=== PATIENT | male | born 1995 | race Two or more races ===

== ENCOUNTER 2016-12-12 08:37 | Emergency (ER) | payer MEDICAID ==
[2016-12-12 08:52] VITALS: BP 133/89
[2016-12-12] MEDS: Acetaminophen/HYDROcodone 325-10 MG Tab PO ONE ×2 (09:12→10:02)
[2016-12-12] MEDS ORDERED: Acetaminophen/HYDROcodone 325-10 MG Tab ONE ×2 (09:15→10:01)
--- NOTE | 2016-12-12 09:30 | EDM.PDOC ---
ED HPI GENERAL MEDICAL PROBLEM - General Chief Complaint: Abdominal Pain Stated Complaint: abdominal pain Time Seen by Provider: 12/12/16 09:10 Source of Information: Reports: Patient History Limitations: Reports: No Limitations - History of Present Illness INITIAL COMMENTS - FREE TEXT/NARRATIVE: This is a 21yo M working at [employer] who went home early from work yesterday for nausea and vomiting and has continued with episodic vomiting today but now has increasing RUQ pain on movement and touch since 5am this morning. He did eat this am and has been regularly taking his medications. He had 3 bouts of abdominal pain yesterday but were short lived. He has had abdominal pain and concerns for over 6-7 years but has never been diagnosed with a disorder. There was some discussion of Crohns with a provider in [place] but nothing definitive. His pain started at about 6/10 and in the ER is at 8/10. Onset: Sudden Duration: Hour(s):, Getting Worse Location: Reports: Abdomen Quality: Reports: Ache, Stabbing Severity: Moderate Improves with: Reports: None Worsens with: Reports: Movement Associated Symptoms: Reports: Nausea/Vomiting - Related Data Allergies Allergy/AdvReac Type Severity Reaction Status Date / Time No Known Allergies Allergy Verified 12/12/16 08:47 Home Meds: Home Meds Dexmethylphenidate HCl [Focalin XR] 15 mg PO DAILY 12/12/16 [History] Escitalopram [Lexapro] 10 mg PO DAILY 12/12/16 [History] Past Medical History Gastrointestinal History: Reports: GERD Social & Family History - Family History Family Medical History: Noncontributory - Caffeine Use Caffeine Use: Reports: None - Recreational Drug Use Recreational Drug Use: No ED ROS GENERAL - Review of Systems Review Of Systems: ROS reveals no pertinent complaints other than HPI. ED EXAM, GI/ABD - Physical Exam Exam: See Below Exam Limited By: No Limitations General Appearance: Alert, WD/WN, Moderate Distress Eyes: Bilateral: EOMI Ears: Normal External Exam Nose: Normal Inspection Throat/Mouth: Normal Inspection Head: Atraumatic, Normocephalic Neck: Normal Inspection Respiratory/Chest: No Respiratory Distress Cardiovascular: Normal Peripheral Pulses GI/Abdominal Exam: Guarding, Tender, Abnormal Bowel Sounds (hyperactive) Extremities: Normal Inspection Neurological: Alert, Oriented, CN II-XII Intact Psychiatric: Normal Affect, Normal Mood Skin Exam: Warm, Dry, Intact Course - Vital Signs Last Recorded V/S: Last Vital Signs Temp 37.3 C 12/12/16 08:50 Pulse 87 12/12/16 08:50 Resp 14 12/12/16 08:50 BP 133/89 12/12/16 08:50 Pulse Ox 99 12/12/16 08:50 - Orders/Labs/Meds Orders: Active Orders 24 hr Category Date Time Status Abdomen Pelvis wo Cont [CT] Stat Exams 12/12/16 09:12 Taken Miscellaneous Lab [REFERENCE TEST TO [facility]] [REF] Lab 12/12/16 09:11 Ordered Routine Sodium Chloride 0.9% [Saline Flush] Med 12/12/16 12:41 Ordered 10 ml FLUSH ASDIRECTED PRN Peripheral IV Insertion Adult [OM.PC] Routine Oth 12/12/16 12:41 Ordered Medication Orders Sodium Chloride (Saline Flush) 10 ml FLUSH ASDIRECTED PRN PRN Reason: Keep Vein Open Labs: Laboratory Tests 12/12/16 12/12/16 12/12/16 Range/Units 09:15 09:15 09:15 WBC 7.0 (4.0-11.0) K/uL RBC 4.96 (4.50-6.50) M/uL Hgb 14.6 (13.0-18.0) g/dL Hct 42.3 (40.0-54.0) % MCV 85 (76-96) fL MCH 29.4 (27.0-32.0) pg MCHC 34.5 (31.0-35.0) g/dL RDW 13.4 (11.0-16.0) % Plt Count 223 (150-400) K/uL MPV 10.3 H (6.0-10.0) fL Neut % (Auto) 58.2 (45.0-70.0) % Lymph % (Auto) 30.3 (20.0-40.0) % [place] % (Auto) 9.6 (3.0-10.0) % Eos % (Auto) 1.3 (1.0-5.0) % Baso % (Auto) 0.6 H (0.0-0.5) % Neut # (Auto) 4.08 (2.00-7.50) K/uL Lymph # (Auto) 2.12 (1.50-4.00) K/uL [place] # (Auto) 0.67 (0.20-0.80) K/uL Eos # (Auto) 0.09 (0.04-0.40) K/uL Baso # (Auto) 0.04 (0.02-0.10) K/uL Sodium 138 (136-145) mmol/L Potassium 3.5 (3.5-5.1) mmol/L Chloride 102 (98-107) mmol/L Carbon Dioxide 28.7 (21.0-32.0) mmol/L Anion Gap 10.8 (5.0-15.0) mmol/L BUN 15 (8-26) mg/dL Creatinine 1.04 (0.70-1.30) mg/dL Est Cr Clr Drug Dosing 111.41 mL/min Estimated GFR (MDRD) > 60 (>60) MLS/MIN BUN/Creatinine Ratio 14.4 (6-25) Glucose 99 (74-100) mg/dL Calcium 9.1 (8.5-10.1) mg/dL Total Bilirubin 0.3 (0.0-1.0) mg/dL Direct Bilirubin (0.0-0.3) mg/dL AST 18 (15-37) U/L ALT 28 (12-78) U/L Alkaline Phosphatase 79 (46-116) U/L Total Protein 7.9 (6.4-8.2) g/dL Albumin 3.9 (3.4-5.0) g/dL Globulin 4.0 (2.2-4.2) g/dL Albumin/Globulin Ratio 1.0 (0.8-2.0) Lipase 167 (73-393) U/L TSH, Ultra Sensitive 2.112 (0.358-3.740) uIU/mL Urine Color Urine Appearance (CLEAR) Urine pH (5.0-8.0) Ur Specific [place] (1.003-1.030) Urine Protein (NEGATIVE) mg/dL Urine Glucose (UA) (NEGATIVE) mg/dL Urine Ketones (NEGATIVE) mg/dL Urine Occult Blood (NEGATIVE) Urine Nitrite (NEGATIVE) Urine Bilirubin (NEGATIVE) Urine Urobilinogen (0.2-1.0) E.U./dL Ur Leukocyte Esterase (NEGATIVE) Urine RBC /HPF Urine WBC /HPF Ur Squamous Epith Cells /HPF Urine Bacteria /HPF 12/12/16 12/12/16 Range/Units 09:15 10:00 WBC (4.0-11.0) K/uL RBC (4.50-6.50) M/uL Hgb (13.0-18.0) g/dL Hct (40.0-54.0) % MCV (76-96) fL MCH (27.0-32.0) pg MCHC (31.0-35.0) g/dL RDW (11.0-16.0) % Plt Count (150-400) K/uL MPV (6.0-10.0) fL Neut % (Auto) (45.0-70.0) % Lymph % (Auto) (20.0-40.0) % [place] % (Auto) (3.0-10.0) % Eos % (Auto) (1.0-5.0) % Baso % (Auto) (0.0-0.5) % Neut # (Auto) (2.00-7.50) K/uL Lymph # (Auto) (1.50-4.00) K/uL [place] # (Auto) (0.20-0.80) K/uL Eos # (Auto) (0.04-0.40) K/uL Baso # (Auto) (0.02-0.10) K/uL Sodium (136-145) mmol/L Potassium (3.5-5.1) mmol/L Chloride (98-107) mmol/L Carbon Dioxide (21.0-32.0) mmol/L Anion Gap (5.0-15.0) mmol/L BUN (8-26) mg/dL Creatinine (0.70-1.30) mg/dL Est Cr Clr Drug Dosing mL/min Estimated GFR (MDRD) (>60) MLS/MIN BUN/Creatinine Ratio (6-25) Glucose (74-100) mg/dL Calcium (8.5-10.1) mg/dL Total Bilirubin (0.0-1.0) mg/dL Direct Bilirubin 0.1 (0.0-0.3) mg/dL AST (15-37) U/L ALT (12-78) U/L Alkaline Phosphatase (46-116) U/L Total Protein (6.4-8.2) g/dL Albumin (3.4-5.0) g/dL Globulin (2.2-4.2) g/dL Albumin/Globulin Ratio (0.8-2.0) Lipase (73-393) U/L TSH, Ultra Sensitive (0.358-3.740) uIU/mL Urine Color Yellow Urine Appearance Clear (CLEAR) Urine pH 8.5 H (5.0-8.0) Ur Specific [place] 1.015 (1.003-1.030) Urine Protein 30 H (NEGATIVE) mg/dL Urine Glucose (UA) Negative (NEGATIVE) mg/dL Urine Ketones Negative (NEGATIVE) mg/dL Urine Occult Blood Negative (NEGATIVE) Urine Nitrite Negative (NEGATIVE) Urine Bilirubin Negative (NEGATIVE) Urine Urobilinogen 0.2 (0.2-1.0) E.U./dL Ur Leukocyte Esterase Negative (NEGATIVE) Urine RBC Not seen /HPF Urine WBC 0-5 H /HPF Ur Squamous Epith Cells Few /HPF Urine Bacteria Few /HPF Meds: Medications Generic Name Dose Route Start Last Admin Trade Name Freq PRN Reason Stop Dose Admin Sodium Chloride 10 ml 12/12/16 12:41 Saline Flush FLUSH ASDIRECTED PRN Keep Vein Open Discontinued Medications Generic Name Dose Route Start Last Admin Trade Name Freq PRN Reason Stop Dose Admin Hydrocodone Bitart/Acetaminophen 1 tab 12/12/16 09:09 12/12/16 10:02 [place] 325-10 Mg PO 12/12/16 09:10 1 tab ONETIME ONE Administration Hydrocodone Bitart/Acetaminophen Confirm 12/12/16 09:15 [place] 325-10 Mg Administered 12/12/16 09:16 Dose 1 tab .ROUTE .STK-MED ONE Hydrocodone Bitart/Acetaminophen Confirm 12/12/16 10:01 [place] 325-10 Mg Administered 12/12/16 10:02 Dose 1 tab .ROUTE .STK-MED ONE Morphine Sulfate 2 mg 12/12/16 12:41 12/12/16 12:33 Morphine IVPUSH 12/12/16 12:42 2 mg ONETIME ONE Administration Morphine Sulfate 2 mg 12/12/16 12:41 12/12/16 12:44 Morphine IVPUSH 12/12/16 12:42 2 mg ONETIME ONE Administration Morphine Sulfate Confirm 12/12/16 12:49 Morphine Administered 12/12/16 12:50 Dose 2 mg .ROUTE .STK-MED ONE Departure - Departure Time of Disposition: 13:00 Disposition: DC/Tfer to Acute Hospital 02 Condition: Undetermined Clinical Impression: Intussusception of small intestine, Acute abdominal pain in right upper quadrant Vomiting Qualifiers: Vomiting type: unspecified Vomiting Intractability: unspecified Nausea presence : with nausea Qualified Code(s): R11.2 - Nausea with vomiting, unspecified - Discharge Information Referrals: PCP,None [Ordering Only Provider] - Forms: ED Department Discharge, ED Return to Work/School Form - Problem List & Annotations (1) Acute abdominal pain in right upper quadrant SNOMED Code(s): 049133160 Code(s): R10.11 - RIGHT UPPER QUADRANT PAIN Status: Acute Priority: High Current Visit: Yes (2) Intussusception of small intestine SNOMED Code(s): 780724812 Code(s): K56.1 - INTUSSUSCEPTION Status: Acute Priority: High Current Visit: Yes (3) Vomiting SNOMED Code(s): 479534636 Code(s): R11.10 - VOMITING, UNSPECIFIED Status: Acute Priority: Medium Current Visit: Yes Qualifiers: Vomiting type: unspecified Vomiting Intractability: unspecified Nausea presence: with nausea Qualified Code(s): R11.2 - Nausea with vomiting, unspecified - Problem List Review Problem List Initiated/Reviewed/Updated: Yes - My Orders Last 24 Hours: My Active Orders 12/12/16 09:11 Miscellaneous Lab [REFERENCE TEST TO MISC LAB] [REF] Routine 12/12/16 09:12 Abdomen Pelvis wo Cont [CT] Stat 12/12/16 12:41 Sodium Chloride 0.9% [Saline Flush] 10 ml FLUSH ASDIRECTED PRN Peripheral IV Insertion Adult [OM.PC] Routine - Assessment/Plan Last 24 Hours: My Active Orders 12/12/16 09:11 Miscellaneous Lab [REFERENCE TEST TO MISC LAB] [REF] Routine 12/12/16 09:12 Abdomen Pelvis wo Cont [CT] Stat 12/12/16 12:41 Sodium Chloride 0.9% [Saline Flush] 10 ml FLUSH ASDIRECTED PRN Peripheral IV Insertion Adult [OM.PC] Routine Plan: Consulted Dr. Tse and discussed intussusception. Plan of transfer discussed with hospitalist Dr. Aguilar. Patient to be transferred for further management as discussed. Patient agrees with plan. Patient would rather go to [place] as his mother lives there but counseled on closer care and travel and patient agrees with plan of action. Patient counseled on Radiological findings and addendum of findings.
[2016-12-12] MEDS ORDERED: Sodium Chloride 0.9% 10 ML Syringe FLUSH PRN (12:41)
[2016-12-12] MEDS ORDERED: Morphine 2 MG/ML Syringe IVPUSH ONE ×2 (12:41)
[2016-12-12] MEDS ORDERED: Morphine 2 MG/ML Syringe ONE (12:49)
--- NOTE | 2016-12-13 08:49 | CT ---
DATE OF SERVICE: 12/12/2016 CLINICAL DATA: RUQ pain. UNENHANCED ABDOMEN AND PELVIC CT Multislice acquisition through the abdomen and pelvis without IV, but with oral contrast was performed. No priors. The lung bases are clear. The unenhanced liver appears normal. The gallbladder appears normal. The spleen appears normal. The pancreas appears normal. The right and left adrenals appear normal. The right and left kidneys appear normal. No nephrocalcinosis or nephrolithiasis. No hydronephrosis or hydroureter. The bladder is partially fluid filled. It appears normal. The appendix is not dilated. No evidence of appendicitis. There is a segment of small bowel within the left abdomen demonstrating small bowel intussusception. No evidence of obstruction associated with this. There is another loop of small bowel with apparent mural thickening. Infectious or inflammatory process should be considered. No free air. No free fluid. No dilated loops of bowel. No aortic aneurysm. There are few scattered mesenteric nodes on the right. Mesenteric adenitis should be considered. IMPRESSION: Small bowel intussusception. Apparent mural thickening within a loop of small bowel. Followup CT should be considered. Scattered mesenteric nodes on right. Mesenteric adenitis should be considered. [id number] MTDD
== END 2016-12-12 12:50 ==
LOC: LB.ED 08:37
DX: K56.1 Intussusception (principal); K21.9 Gastro-esophageal reflux disease without esophagitis; Z79.899 Other long term (current) drug therapy
CPT/HCPCS: 36415; 74176; 80053; 81001; 82248; 83690; 84443; 85025; 96374; 99285; A0425; A0429; A9270; J2270

== ENCOUNTER 2016-12-31 09:18 | Emergency (ER) | payer MEDICAID ==
[2016-12-31] MEDS ORDERED: Acetaminophen/HYDROcodone 325-10 MG Tab PO ONE (10:27)
[2016-12-31] MEDS ORDERED: Acetaminophen/HYDROcodone 325-10 MG Tab ONE (10:29)
[2016-12-31 10:54] VITALS: BP 108/70
--- NOTE | 2016-12-31 16:06 | EDM.PDOC ---
ED HPI GENERAL MEDICAL PROBLEM - General Chief Complaint: Abdominal Pain Stated Complaint: ABD PAIN Time Seen by Provider: 12/31/16 09:30 Source of Information: Reports: Patient History Limitations: Reports: No Limitations - History of Present Illness INITIAL COMMENTS - FREE TEXT/NARRATIVE: This is a 21yo M who was found to have multiple intussusceptions of the small bowel and transferred to [place] returned today with increasing abdominal pain. He has been on hydrocodone since his discharge from [place]. Patient states James has ordered a EGD and Colonoscopy for this saturday but did not have any surgical options at this time. Onset: Sudden Duration: Hour(s): Location: Reports: Abdomen Quality: Reports: Ache Severity: Moderate Improves with: Reports: None Worsens with: Reports: None Right Upper Abdomen Pain Score (Numeric/FACES): 6 - Related Data Allergies Allergy/AdvReac Type Severity Reaction Status Date / Time No Known Allergies Allergy Verified 12/12/16 08:47 Home Meds: Home Meds Dexmethylphenidate HCl [Focalin XR] 15 mg PO DAILY 12/12/16 [History] Escitalopram [Lexapro] 10 mg PO DAILY 12/12/16 [History] Past Medical History Gastrointestinal History: Reports: Chronic Constipation, Chronic Diarrhea, GERD Psychiatric History: Reports: ADHD Social & Family History - Family History Family Medical History: Noncontributory GI: Reports: Cholelithiasis - Caffeine Use Caffeine Use: Reports: None - Recreational Drug Use Recreational Drug Use: No ED ROS GENERAL - Review of Systems Review Of Systems: ROS reveals no pertinent complaints other than HPI. ED EXAM, GI/ABD - Physical Exam Exam: See Below Exam Limited By: No Limitations General Appearance: Alert, WD/WN, Moderate Distress Eyes: Bilateral: EOMI Ears: Normal External Exam Nose: Normal Inspection Throat/Mouth: Normal Inspection Head: Atraumatic, Normocephalic Neck: Normal Inspection Respiratory/Chest: No Respiratory Distress, Lungs Clear, Normal Breath Sounds Cardiovascular: Normal Peripheral Pulses, Regular Rate, Rhythm GI/Abdominal Exam: Tender Back Exam: Normal Inspection Extremities: Normal Inspection Neurological: Alert, Oriented, CN II-XII Intact Psychiatric: Normal Affect, Normal Mood Skin Exam: Warm, Dry, Intact Course - Vital Signs Last Recorded V/S: Last Vital Signs Temp 36.4 C 12/31/16 09:27 Pulse 75 12/31/16 10:53 Resp 16 12/31/16 10:53 BP 108/70 12/31/16 10:53 Pulse Ox 98 12/31/16 10:53 - Orders/Labs/Meds Orders: Active Orders 24 hr Category Date Time Status Abdomen wo Cont [CT] Stat Exams 12/31/16 10:26 Taken Labs: Laboratory Tests 12/31/16 12/31/16 Range/Units 09:55 09:55 WBC 6.2 (4.0-11.0) K/uL RBC 4.65 (4.50-6.50) M/uL Hgb 13.9 (13.0-18.0) g/dL Hct 40.7 (40.0-54.0) % MCV 88 (76-96) fL MCH 29.9 (27.0-32.0) pg MCHC 34.2 (31.0-35.0) g/dL RDW 13.6 (11.0-16.0) % Plt Count 173 D (150-400) K/uL MPV 10.0 (6.0-10.0) fL Neut % (Auto) 55.9 (45.0-70.0) % Lymph % (Auto) 30.5 (20.0-40.0) % [place] % (Auto) 10.9 H (3.0-10.0) % Eos % (Auto) 2.4 (1.0-5.0) % Baso % (Auto) 0.3 (0.0-0.5) % Neut # (Auto) 3.44 (2.00-7.50) K/uL Lymph # (Auto) 1.88 (1.50-4.00) K/uL [place] # (Auto) 0.67 (0.20-0.80) K/uL Eos # (Auto) 0.15 (0.04-0.40) K/uL Baso # (Auto) 0.02 (0.02-0.10) K/uL Sodium 141 (136-145) mmol/L Potassium 3.6 (3.5-5.1) mmol/L Chloride 106 (98-107) mmol/L Carbon Dioxide 23.9 (21.0-32.0) mmol/L Anion Gap 14.7 (5.0-15.0) mmol/L BUN 11 D (8-26) mg/dL Creatinine 1.21 (0.70-1.30) mg/dL Est Cr Clr Drug Dosing 95.76 mL/min Estimated GFR (MDRD) > 60 (>60) MLS/MIN BUN/Creatinine Ratio 9.1 (6-25) Glucose 94 (74-100) mg/dL Calcium 9.1 (8.5-10.1) mg/dL Total Bilirubin 0.3 (0.0-1.0) mg/dL AST 21 (15-37) U/L ALT 27 (12-78) U/L Alkaline Phosphatase 78 (46-116) U/L Total Protein 7.5 (6.4-8.2) g/dL Albumin 3.7 (3.4-5.0) g/dL Globulin 3.8 (2.2-4.2) g/dL Albumin/Globulin Ratio 1.0 (0.8-2.0) Meds: Medications Discontinued Medications Generic Name Dose Route Start Last Admin Trade Name [place] PRN Reason Stop Dose Admin Hydrocodone Bitart/Acetaminophen 1 tab 12/31/16 10:27 12/31/16 10:29 [place] 325-10 Mg PO 12/31/16 10:28 1 tab ONETIME ONE Administration Hydrocodone Bitart/Acetaminophen Confirm 12/31/16 10:29 [place] 325-10 Mg Administered 12/31/16 10:30 Dose 1 tab .ROUTE .STK-MED ONE Departure - Departure Time of Disposition: 13:00 Disposition: Home, Self-Care 01 Condition: Undetermined Clinical Impression: Abdominal pain Qualifiers: Abdominal location: generalized Qualified Code(s): R10.84 - Generalized abdominal pain - Discharge Information Instructions: Esophagogastroduodenoscopy, Colonoscopy, Barium Enema, Barium Swallow, Intussusception, Pediatric Referrals: PCP,None [Primary Care Provider] - Forms: ED Department Discharge, ED Return to Work/School Form Additional Instructions: Go to your appointment on Saturday for the EGD and colonoscopy. You have to have a ride home on Saturday. If you get no answers on Saturday return to the clinic for a followup with Dr. Albarado. - My Orders Last 24 Hours: My Active Orders 12/31/16 10:26 Abdomen wo Cont [CT] Stat - Assessment/Plan Last 24 Hours: My Active Orders 12/31/16 10:26 Abdomen wo Cont [CT] Stat
--- NOTE | 2017-01-01 11:14 | CT ---
DATE OF SERVICE: 12/31/16 CLINICAL DATA: Right upper quad pain UNENHANCED ABDOMEN CT: Multislice acquisition through the abdomen without IV, but with oral contrast was performed. Comparison is made to a prior unenhanced abdomen and pelvic CT dated 12/12/16. The lung bases are clear. The unenhanced liver appears normal. No focal hepatic lesions. The gallbladder appears normal. The spleen appears normal. The pancreas appears normal. The right and left adrenals appear normal. The right and left kidneys appear normal. No nephrocalcinosis or nephrolithiasis. No hydronephrosis or hydroureter. There is diffuse gastric wall thickening. This is most likely related to nondistention. Gastritis should at least be considered. The appendix is not dilated. No evidence of appendicitis. There is a moderate amount of stool noted within the visualized colon. There are nonspecific lymph nodes medial to the cecum and ascending colon. Mesenteric adenitis should be considered. No free air. No free fluid. No dilated loops of bowel. No aortic aneurysm. [id number] [facility]
== END 2016-12-31 13:23 | disposition home or self-care (01) ==
LOC: LB.ED 09:18
DX: R10.84 Generalized abdominal pain (principal); K21.9 Gastro-esophageal reflux disease without esophagitis; F90.9 Attention-deficit hyperactivity disorder, unspecified type; Z79.899 Other long term (current) drug therapy
CPT/HCPCS: 36415; 74150; 80053; 85025; 99284; A9270; 99283

== ENCOUNTER 2017-01-04 09:47 | Day surgery (SDC) | payer MEDICAID ==
[~2017-01-04 09:47] MED LIST: Metoclopramide 10 MG/2 ML SDV IV PRN; Sodium Chloride 0.9% 1,000 ML IV SCH
[2017-01-04] MEDS ORDERED: fentaNYL 250 MCG/5 ML SDV ONE (11:45)
[2017-01-04] MEDS ORDERED: Propofol 200 MG/20 ML SDV ONE (11:45)
[2017-01-04 12:30] VITALS: BP 100/64
--- NOTE | 2017-01-07 07:34 | OR ---
DATE OF OPERATION: 01/04/2017 PREOPERATIVE DIAGNOSIS: Suspected Crohn's disease. POSTOPERATIVE DIAGNOSIS: 1. Moderate to severe gastritis and duodenitis. 2. Suspected terminal ileitis. OPERATION: 1. Esophagogastroduodenoscopy with biopsies. 2. Colonoscopy with biopsies. ESTIMATED BLOOD LOSS: Minimal. ANESTHESIA: General propofol anesthesia. SPECIMENS: 1. Duodenal biopsy. 2. Duodenal bulb biopsy. 3. Gastric antrum biopsy. 4. Terminal ileal biopsy. 5. Cecal biopsy. 6. Rectal biopsy. COMPLICATIONS: None. DRAINS: None. INDICATION: Mr. Michael is a 21-year-old gentleman who presented with abdominal pain to [facility]. He resolved immediately and was being treated for suspected Crohn's disease, due to a family history. He is positive for IgA antibody. The above-mentioned procedure was explained. The risks, benefits, complications were explained. Patient understood and agreed and was brought to the operating room. DESCRIPTION OF PROCEDURE: The patient was brought to the operating room, placed in the left lateral decubitus position on the operating room table. Satisfactory general propofol anesthesia was administered. The patient's head was then placed in 45-degree up position, and a mouth guard was placed. Next, I then placed the endoscope visually into the oral cavity and, under direct vision, was then able to advance this down to the level of second portion of the duodenum. Evaluation was carried out on withdrawal. Evaluation of the duodenum revealed some blunting of the villi with a granular appearance, suggestive of duodenitis. There was some erythema in the bulb, again suggestive of duodenitis. Biopsies were taken from D2 as well as from the bulb of the duodenum. Next, careful evaluation of the antrum of the stomach revealed some superficial ulcerations, which were quite small, and some erythema and granularity of the mucosa. This was diffuse and, in some places, in a striped pattern. Biopsies were taken from the antrum. Next, retroflexion in the stomach revealed some cobblestoning of the stomach and again some granularity. No hiatal hernia was identified. The stomach was then decompressed and the endoscope withdrawn to the GE junction, which was within normal limits. The remainder of the esophagus was normal. The endoscope was then subsequently withdrawn. We then turned the table around and perform the colonoscopy. The colonoscope was then introduced by finger introduction into the rectum. All tissues were normal per examination. Next, the colonoscope was then advanced to the level of the cecum, which was identified by the appendiceal orifice, the cecal strap, and the terminal ileum and the start of the ileocecal valve. Next, I intubated the terminal ileum, which showed enlarged Peyer's patches and nodularity of the terminal ileum with thickened mucosa. The mucosa was then biopsied multiple times. I then again turned my attention back to the cecum, which appeared normal, however, I took some random biopsies of the cecum. The colon was then inspected thoroughly. There was no indication of telangiectasias, no polyps, no neoplastic growths, no diverticula. As we approached the rectum, the rectum appeared normal and we took some random biopsies as well from the rectum. Retroflexion was then performed in the rectum, which was within normal limits. I then subsequently decompressed the colon and withdrew the endoscope. The patient was then awoken in the OR and taken to the PACU for recovery. There were no complications. Instrument count was correct. The patient tolerated the procedure well. Recommend to follow up pathology results and possible Gastroenterology referral, based on these results. GEN /[id number]
== END 2017-01-04 13:48 | disposition home or self-care (01) ==
LOC: LB.SDS 09:47
PROVIDERS: ATTEND Surgery
DX: K29.50 Unspecified chronic gastritis without bleeding (principal)
CPT/HCPCS: 43239; 45380; 88305; J2704; J2765; J3010; J7040

== ENCOUNTER 2017-01-11 19:39 | Observation (INO) | payer MEDICAID ==
[2017-01-11] MEDS ORDERED: Ondansetron 4 MG/2 ML SDV IVPUSH ONE (20:06)
--- NOTE | 2017-01-11 20:06 | EDM.PDOC ---
ED HPI GENERAL MEDICAL PROBLEM - General Chief Complaint: General Stated Complaint: Nausea and Vomiting Time Seen by Provider: 01/11/17 19:45 Source of Information: Reports: Patient History Limitations: Reports: No Limitations - History of Present Illness INITIAL COMMENTS - FREE TEXT/NARRATIVE: According to patient he claims that He has been diagnosed with Chron's disease and presently on zofran for his nausea. He has run out of his zofran. But, since today morning he has been feeling nauseous and wretching all day. He claims he has had small episodes of vomiting all day. Vomitus is clear fluid and later in the afternoon had noticed streaks of blood. Has not eaten any food. No fever or chills. No abdominal pain or distension. Has been constantly wretching and cannot stop wretching hence he is here in the emergency room. He has been passing flatus on and off, but has not had bowel movement today. he claims he had upper and lower GI study done by Dr. Tse and was diagnosed with Chron's. Onset: Today Onset Date: 01/11/17 Onset Time: 08:00 Severity: Moderate Improves with: Reports: None Worsens with: Reports: None Associated Symptoms: Reports: Nausea/Vomiting. Denies: Confusion, Chest Pain, Cough, Diaphoresis, Fever/Chills, Headaches, Rash, Shortness of Breath, Syncope , Weakness - Related Data Allergies Allergy/AdvReac Type Severity Reaction Status Date / Time No Known Allergies Allergy Verified 01/02/17 14:43 Home Meds: Home Meds Dexmethylphenidate HCl [Focalin XR] 15 mg PO DAILY 12/12/16 [History] Escitalopram [Lexapro] 10 mg PO DAILY 12/12/16 [History] Hydrocodone/Acetaminophen [Hydrocodon-Acetaminophn 10-325] 1 tab PO Q4H PRN [History] Past Medical History Gastrointestinal History: Reports: Chronic Constipation, Chronic Diarrhea, GERD Psychiatric History: Reports: ADD Social & Family History - Family History Family Medical History: Noncontributory GI: Reports: Cholelithiasis - Caffeine Use Caffeine Use: Reports: None - Recreational Drug Use Recreational Drug Use: No ED ROS GENERAL - Review of Systems Review Of Systems: See Below Constitutional: Denies: Fever, Chills, Malaise, Night Sweats, Diaphoresis, Decreased Appetite HEENT: Denies: Rhinitis, Sinus Problem, Throat Swelling, Vision Change Respiratory: Denies: Shortness of Breath, Wheezing, Cough, Sputum GI/Abdominal: Reports: Flatus, Nausea, Vomiting. Denies: Abdominal Pain (upper abdominal wall pain), Distension, Hematemesis, Hematochezia, Melena : Denies: Dysuria, Frequency Musculoskeletal: Denies: Neck Pain, Joint Pain, Joint Swelling Skin: Denies: Jaundice, Bruising, Pruritis, Rash Neurological: Denies: Confusion, Dizziness, Headache, Seizure ED EXAM, GENERAL - Physical Exam Exam: See Below Exam Limited By: No Limitations General Appearance: Alert, WD/WN, Mild Distress, Other (Pt is constantly wretching and trying to vomit) Eye Exam: Bilateral Eye: EOMI, PERRL Ears: Normal External Exam, Normal Canal, Hearing Grossly Normal, Normal TMs Ear Exam: Bilateral Ear: Auricle Normal, Canal Normal, TM normal Nose: Normal Inspection, Normal Mucosa, No Blood Throat/Mouth: Normal Inspection, Normal Lips, Normal Teeth, Normal Gums, Normal Oropharynx, Normal Voice, No Airway Compromise Head: Atraumatic, Normocephalic Neck: Normal Inspection, Supple, Non-Tender, Full Range of Motion Respiratory/Chest: No Respiratory Distress, Lungs Clear, Normal Breath Sounds, No Accessory Muscle Use, Chest Non-Tender Cardiovascular: Normal Peripheral Pulses, Regular Rate, Rhythm, No Edema, No Gallop, No JVD, No Murmur, No Rub GI/Abdominal: Soft, Tender (in the upper abdominal wall), Abnormal Bowel Sounds (sluggish bowel sounds). No: No Organomegaly, No Distention, No Abnormal Bruit , No Mass, Rigid, Rebound Extremities: Normal Inspection, Normal Range of Motion, Non-Tender, Normal Capillary Refill, No Pedal Edema Course - Vital Signs Text/Narrative:: Pt's did receive S/L zofran 4mg as soon as he was seen. Clinical exam is normal. His CBC, CMP, lipase are normal. His abdominal Xray appear normal. No signs of obstruction, has normal gas pattern. His amylase is slightly elevated, due to gastric irritation form constant wretching all day. Pt continue to wretch and vomit small amounts of saliva. He has received Zofran 8mg IV and also phenergan 25mg IV and continues to sit and wretch. He probably has developed diaphragmatic spasms from wretching all day. Plan is to observe him over night and also will give him some IV fluids to hydrated him as he claims he has not eaten of drunk much today. He did receive 1mg Ativan IV to relax him. with sleeping, his wretching might resolve. Will reassess him in the morning. Last Recorded V/S: Last Vital Signs Temp 98 F 01/11/17 20:07 Pulse 79 01/11/17 20:07 Resp 20 01/11/17 20:07 BP 143/108 H 01/11/17 20:07 Pulse Ox 100 01/11/17 20:07 - Orders/Labs/Meds Orders: Active Orders 24 hr Category Date Time Status Abdomen 2V AP Flat Upright [CR] Stat Exams 01/11/17 20:00 Taken Ondansetron [Zofran ODT] Med 01/11/17 20:14 Active 4 mg PO ONETIME PRN Medication Orders Ondansetron HCl (Zofran Odt) 4 mg PO ONETIME PRN PRN Reason: nausea and vomiting Last Admin: 01/11/17 19:50 Dose: 4 mg Labs: Laboratory Tests 01/11/17 01/11/17 01/11/17 Range/Units 08:05 08:05 08:05 WBC 7.8 D (4.0-11.0) K/uL RBC 4.83 (4.50-6.50) M/uL Hgb 14.7 (13.0-18.0) g/dL Hct 41.9 (40.0-54.0) % MCV 87 (76-96) fL MCH 30.4 (27.0-32.0) pg MCHC 35.1 H (31.0-35.0) g/dL RDW 13.3 (11.0-16.0) % Plt Count 247 D (150-400) K/uL MPV 9.9 (6.0-10.0) fL Neut % (Auto) 57.2 (45.0-70.0) % Lymph % (Auto) 32.6 (20.0-40.0) % Republic % (Auto) 9.2 (3.0-10.0) % Eos % (Auto) 0.5 L (1.0-5.0) % Baso % (Auto) 0.5 (0.0-0.5) % Neut # (Auto) 4.43 (2.00-7.50) K/uL Lymph # (Auto) 2.53 (1.50-4.00) K/uL Republic # (Auto) 0.71 (0.20-0.80) K/uL Eos # (Auto) 0.04 (0.04-0.40) K/uL Baso # (Auto) 0.04 (0.02-0.10) K/uL Sodium 139 (136-145) mmol/L Potassium 3.4 L (3.5-5.1) mmol/L Chloride 104 (98-107) mmol/L Carbon Dioxide 25.3 (21.0-32.0) mmol/L Anion Gap 13.1 (5.0-15.0) mmol/L BUN 15 D (8-26) mg/dL Creatinine 1.06 (0.70-1.30) mg/dL Est Cr Clr Drug Dosing TNP Estimated GFR (MDRD) > 60 (>60) MLS/MIN BUN/Creatinine Ratio 14.2 (6-25) Glucose 107 H (74-100) mg/dL Calcium 8.8 (8.5-10.1) mg/dL Total Bilirubin 0.2 D (0.0-1.0) mg/dL AST 20 (15-37) U/L ALT 25 (12-78) U/L Alkaline Phosphatase 80 (46-116) U/L Total Protein 7.9 (6.4-8.2) g/dL Albumin 3.9 (3.4-5.0) g/dL Globulin 4.0 (2.2-4.2) g/dL Albumin/Globulin Ratio 1.0 (0.8-2.0) Amylase 155 H (25-115) U/L Lipase 166 (73-393) U/L Meds: Medications Generic Name Dose Route Start Last Admin Trade Name Freq PRN Reason Stop Dose Admin Ondansetron HCl 4 mg 01/11/17 20:14 01/11/17 19:50 Zofran Odt PO 4 mg ONETIME PRN Administration nausea and vomiting Discontinued Medications Generic Name Dose Route Start Last Admin Trade Name Freq PRN Reason Stop Dose Admin Lorazepam Confirm 01/11/17 21:19 Ativan Administered 01/11/17 21:20 Dose 2 mg .ROUTE .STK-MED ONE Ondansetron HCl 8 mg 01/11/17 20:06 01/11/17 20:05 Zofran IVPUSH 01/11/17 20:07 8 mg ONETIME ONE Administration Pantoprazole Sodium Confirm 01/11/17 20:40 01/11/17 21:02 Protonix Iv Administered 01/11/17 20:41 Not Given Dose 40 mg .ROUTE .STK-MED ONE Pantoprazole Sodium 40 mg 01/11/17 20:39 01/11/17 21:02 Protonix Iv IVPUSH 01/11/17 20:40 40 mg ONETIME ONE Administration Promethazine HCl Confirm 01/11/17 20:45 01/11/17 20:45 Phenergan Administered 01/11/17 20:46 25 mg Dose Administration 25 mg .ROUTE .STK-MED ONE Departure - Departure Time of Disposition: 21:30 Disposition: Refer to Observation Condition: Good Clinical Impression: Intractable vomiting - Discharge Information Forms: ED Department Discharge - Problem List & Annotations (1) Vomiting SNOMED Code(s): 036687990 Code(s): R11.10 - VOMITING, UNSPECIFIED Status: Acute Priority: Medium Current Visit: No Qualifiers: Vomiting type: unspecified Vomiting Intractability: unspecified Nausea presence: with nausea Qualified Code(s): R11.2 - Nausea with vomiting, unspecified - Problem List Review Problem List Initiated/Reviewed/Updated: Yes - My Orders Last 24 Hours: My Active Orders 01/11/17 20:00 Abdomen 2V AP Flat Upright [CR] Stat 01/11/17 20:14 Ondansetron [Zofran ODT] 4 mg PO ONETIME PRN - Assessment/Plan Last 24 Hours: My Active Orders 01/11/17 20:00 Abdomen 2V AP Flat Upright [CR] Stat 01/11/17 20:14 Ondansetron [Zofran ODT] 4 mg PO ONETIME PRN Assessment:: Intractable vomiting Plan: Pt's did receive S/L zofran 4mg as soon as he was seen. Clinical exam is normal. His CBC, CMP, lipase are normal. His abdominal Xray appear normal. No signs of obstruction, has normal gas pattern. His amylase is slightly elevated, due to gastric irritation form constant wretching all day. Pt continue to wretch and vomit small amounts of saliva. He has received Zofran 8mg IV and also phenergan 25mg IV and continues to sit and wretch. He probably has developed diaphragmatic spasms from wretching all day. Plan is to observe him over night and also will give him some IV fluids to hydrated him as he claims he has not eaten of drunk much today. He did receive 1mg Ativan IV to relax him. with sleeping, his wretching might resolve. Will reassess him in the morning.
[2017-01-11] MEDS ORDERED: Ondansetron 4 MG Tab.DIS PO PRN (20:14)
[2017-01-11] MEDS ORDERED: Pantoprazole 40 MG Vial IVPUSH ONE (20:39)
[2017-01-11] MEDS ORDERED: Pantoprazole 40 MG Vial ONE (20:40)
[2017-01-11] MEDS ORDERED: Promethazine 25 MG/ML SDV ONE (20:45)
[2017-01-11] MEDS ORDERED: LORazepam 2 MG/ML MDV ONE (21:19)
[2017-01-11] MEDS ORDERED: Sodium Chloride 0.9% 10 ML Syringe FLUSH PRN (21:39)
[2017-01-11] MEDS ORDERED: Sodium Chloride 0.9% 1,000 ML IV SCH (21:45)
[2017-01-11] MEDS ORDERED: GI Cocktail Oral Solution 30 ML PO ONE (22:20)
[2017-01-11] MEDS ORDERED: Ondansetron 4 MG/2 ML SDV ONE (23:27)
[2017-01-11] MEDS: Ondansetron 4 MG/2 ML SDV IVPUSH SCH (23:29)
[2017-01-12] MEDS ORDERED: Promethazine 25 MG/ML SDV ONE (00:37)
[2017-01-12] MEDS ORDERED: Promethazine 25 MG in Sodium Chloride 0.9% 50 ML IV PRN (00:40)
[2017-01-12] MEDS: Ondansetron 4 MG/2 ML SDV IVPUSH SCH ×3 (03:00→08:30)
[2017-01-12] MEDS ORDERED: Ibuprofen 800 MG Tab PO ONE (08:17)
--- NOTE | 2017-01-12 08:28 | PCM.DCSUM1 ---
Discharge Summary - Hospital Course Free Text/Narrative:: Pt was admitted for observation and fluid hydration too as he had not eaten or drank any fluids all. day. Pt continued to have episodes of violent wretching at time, and is almost constant. he did receive total of 12mg of zofran by the time he was admitted to the hospital and 25mg IV phenergan. But there was not difference in his presentation. He has abdominal wall pain form wretching. It almost appears like, Pt almost has severe violent contraction of the diaphragm which are involuntary.We did try GI cocktail to help numb the Upper GI tract , but made no difference. Did repeat another dose of phenergan in 6 hrs. I did contact, the emergency room physician at [facility] to see what else could be done. he did recommend getting drug screen done and could try some muscle relaxants to help resolve the spasms. By that time patients wretching was spacing out and he went to sleep around 2AM. In the morning patient has been doing fine. Does not have any more wretching or vomiting. On further questioning patient, he claims he has had this since he was in school and has been admitted several times in [place] where he used to live . He gets these episodes on and off and sometimes resolve without coming into hospital. Zofran helps . I do feel pt need further workup. This appear like intrinsic neuromuscular abnormality of the diaphragm or cyclical vomiting or psychogenic etiology. It does not appear like esophageal spasm or motility problem as he can swallow when this is happen without any discomfort. today morning he claims he feels better, has not been wretching, he is tender over the abdominal wall. Brief History: pt presented with uncontrolable vomting which started at 8 am yesterday. kindly see H&P for details. - Discharge Data Discharge Date: 01/12/17 Discharge Disposition: Home, Self-Care 01 Condition: Fair - Discharge Diagnosis/Problem(s) (1) Vomiting SNOMED Code(s): 615374273 ICD Code: R11.10 - VOMITING, UNSPECIFIED Status: Acute Priority: Medium Current Visit: No Qualifiers: Vomiting type: unspecified Vomiting Intractability: unspecified Nausea presence: with nausea Qualified Code(s): R11.2 - Nausea with vomiting, unspecified - Patient Instructions Diet: Regular Diet as Tolerated Fluid Restriction: 1500 mL Driving: [address] Drive Today - Discharge Plan Home Medications: Home Meds Dexmethylphenidate HCl [Focalin XR] 15 mg PO DAILY 12/12/16 [History] Escitalopram [Lexapro] 10 mg PO DAILY 12/12/16 [History] Hydrocodone/Acetaminophen [Hydrocodon-Acetaminophn 10-325] 1 tab PO Q4H PRN [History] Forms: ED Department Discharge Referrals: PCP,None [Primary Care Provider] - - Discharge Summary/Plan Comment DC Time >30 min.: Yes Discharge Summary/Plan Comment: Zofran 4mg 3 times daily Ibuprofen 800mg 3 times daily as needed for 2-3 days for abdominal wall pain. needs further GI consult and possible thoracic surgeon. Followup with his Primary care provider - General Info Functional Status: Reports: Pain Controlled, Ambulating, Urinating - Review of Systems General: Denies: Fever, Weakness, Fatigue HEENT: Denies: Headaches, Sinus Congestion Pulmonary: Denies: Sputum, Hemoptysis Cardiovascular: Denies: Chest Pain, Lightheadedness Gastrointestinal: Reports: Abdominal Pain (wall pain). Denies: Hematochezia, Melena, Nausea, Vomiting Genitourinary: Denies: Dysuria, Frequency Skin: Denies: Pruritis, Rash - Patient Data Vitals - Most Recent: Last Vital Signs Temp 98.3 F 01/11/17 21:39 Pulse 82 01/11/17 21:39 Resp 20 01/11/17 21:39 BP 111/75 01/11/17 21:39 Pulse Ox 100 01/11/17 21:39 Weight - Most Recent: 79.832 kg I&O - Last 24 hours: Intake & Output 01/11/17 01/12/17 01/12/17 22:59 06:59 14:59 Intake Total 953 Balance 953 Med Orders - Current: Current Medications Sodium Chloride (Normal Saline) 1,000 mls @ 125 mls/hr IV ASDIRECTED MARIA FERNANDA Last Admin: 01/11/17 21:45 Dose: 125 mls/hr Promethazine HCl 25 mg/ Sodium (Chloride) 51 mls @ 200 mls/hr IV Q4H PRN PRN Reason: Nausea/Vomiting Last Admin: 01/12/17 00:47 Dose: 200 mls/hr Ondansetron HCl (Zofran Odt) 4 mg PO ONETIME PRN PRN Reason: nausea and vomiting Last Admin: 01/11/17 19:50 Dose: 4 mg Ondansetron HCl (Zofran) 4 mg IVPUSH Q6H MARIA FERNANDA Last Admin: 01/12/17 03:00 Dose: 4 mg Sodium Chloride (Saline Flush) 10 ml FLUSH ASDIRECTED PRN PRN Reason: Keep Vein Open Discontinued Medications Al Hydroxide/Mg Hydroxide (Gi Cocktail) 30 ml PO ONETIME ONE Stop: 01/11/17 22:21 Last Admin: 01/11/17 22:30 Dose: 30 ml Lorazepam (Ativan) Confirm Administered Dose 2 mg .ROUTE .STK-MED ONE Stop: 01/11/17 21:20 Last Admin: 01/11/17 21:00 Dose: 2 mg Ondansetron HCl (Zofran) 8 mg IVPUSH ONETIME ONE Stop: 01/11/17 20:07 Last Admin: 01/11/17 20:05 Dose: 8 mg Ondansetron HCl (Zofran) Confirm Administered Dose 4 mg .ROUTE .STK-MED ONE Stop: 01/11/17 23:28 Last Admin: 01/12/17 00:51 Dose: Not Given Pantoprazole Sodium (Protonix Iv) Confirm Administered Dose 40 mg .ROUTE .STK -MED ONE Stop: 01/11/17 20:41 Last Admin: 01/11/17 21:02 Dose: Not Given Pantoprazole Sodium (Protonix Iv) 40 mg IVPUSH ONETIME ONE Stop: 01/11/17 20:40 Last Admin: 01/11/17 21:02 Dose: 40 mg Promethazine HCl (Phenergan) Confirm Administered Dose 25 mg .ROUTE .STK-MED ONE Stop: 01/11/17 20:46 Last Admin: 01/11/17 20:45 Dose: 25 mg Promethazine HCl (Phenergan) Confirm Administered Dose 25 mg .ROUTE .STK-MED ONE Stop: 01/12/17 00:38 Last Admin: 01/12/17 00:49 Dose: 25 mg - Exam General: Reports: Alert, Oriented HEENT: Reports: Pupils Equal, Pupils Reactive, EOMI, Mucous Membr. Moist/[place] Neck: Reports: Supple Lungs: Reports: Clear to Auscultation, Normal Respiratory Effort Cardiovascular: Reports: Regular Rate, Regular Rhythm GI/Abdominal Exam: Normal Bowel Sounds, Soft, No Organomegaly, No Distention, No Abnormal Bruit, No Mass, Pelvis Stable, Tender (abdomianl wall tenderness along the costal margin). No: Guarding, Rigid, Rebound Psy/Mental Status: Reports: Alert, Normal Affect, Normal Mood *Q Meaningful Use (DIS) - VTE *Q VTE Criteria *Q: - Stroke *Q Stroke Criteria *Q: - AMI *Q AMI Criteria *Q:
[2017-01-12] MEDS ORDERED: Ondansetron 4 MG Tab.DIS ONE (09:00)
[2017-01-12] MEDS ORDERED: Ketorolac 30 MG/ML SDV ONE (09:06)
[2017-01-12 09:41] VITALS: BP 139/77
--- NOTE | 2017-01-13 15:00 | CR ---
DATE OF SERVICE: 01/11/17 CLINICAL DATA: Nausea ,vomiting abdominal discomfort SUPINE AND UPRIGHT ABDOMEN: No evidence of obstruction or ileus. No free air. There is a radiodensity in the pelvis, significance uncertain. It may be related to the patient's clothing. No other significant findings. [id number] [facility]
== END 2017-01-12 12:48 | disposition home or self-care (01) ==
LOC: LB.ED 19:39 → UNDOADMOB 21:30 → LB.MS 21:30
PROVIDERS: ADMIT Family Medicine; ATTEND Family Medicine
DX: R11.2 Nausea with vomiting, unspecified (principal); K21.9 Gastro-esophageal reflux disease without esophagitis; K59.09 Other constipation; K52.9 Noninfective gastroenteritis and colitis, unspecified; Z79.899 Other long term (current) drug therapy
CPT/HCPCS: 36415; 74020; 80053; 82150; 83690; 85025; 96374; 96375; 96376; 99285; A9270; C9113; G0378; J1885; J2060; J2405; J2550; J7040; J7050